=== PATIENT | male | born 1970 | race Caucasian/White ===

== ENCOUNTER 2018-09-04 15:05 | Emergency (ER) | payer OTHER ==
[~2018-09-04] VITALS: Ht 182.9 cm; Wt 92.1 kg
[2018-09-04] MEDS ORDERED: HYDROCHLOROTHIA25 M2 PO (15:13)
[2018-09-04 15:46] LABS: ABSOLUTE EOSINOPHILS 0.2 thou/uL (0.0-0.7); ABSOLUTE LYMPHOCYTES 2.2 thou/uL (0.8-5.3); ABSOLUTE MONOCYTES 0.7 thou/uL (0.0-1.2); ABSOLUTE NEUTROPHILS 4.8 thou/uL (1.6-8.1); BASOPHILS 0.6 %; EOSINOPHILS 2.8 %; HEMATOCRIT 43.2 % (42.0-52.0); HEMOGLOBIN 15.4 gm/dL (14.0-18.0); LYMPHOCYTES 27.4 %; MCH 29.4 pg (26.0-34.0); MCHC 35.6 g/dL (28.0-37.0); MCV 82.7 fL (80.0-100.0); MPV 6.9 fl. (7.2-11.1); NUCLEATED RBCS 0 /100WBC; PLATELET COUNT* 291 thou/uL (150-400); POLYS 60.2 %; RBC 5.23 mil/uL (4.50-6.00); RDW-CV 13.1 % (10.5-14.5)
[2018-09-04 16:06] LABS: CALCIUM 9.3 mg/dL (8.5-10.1); CREATININE 1.1 mg/dL (0.6-1.3); POTASSIUM 3.8 mmol/L (3.5-5.1)
[2018-09-04 16:10] LABS: ALBUMIN 4.4 g/dL (3.4-5.0); TOTAL BILIRUBIN 0.7 mg/dL (<0.1-1.0); TOTAL PROTEIN 7.6 g/dL (6.4-8.2)
[2018-09-04] MEDS ORDERED: MAGIC MOUTHWASH SWISH&SPIT (16:32)
[2018-09-04 16:59] VITALS: BP 132/88
== END 2018-09-04 17:00 | disposition home or self-care (01) ==
LOC: M.ERS 15:05
PROVIDERS: Nurse Practitioner Family
DX: K12.30 Oral mucositis (ulcerative), unspecified (principal); B37.0 Candidal stomatitis; F45.8 Other somatoform disorders; I10 Essential (primary) hypertension; F17.210 Nicotine dependence, cigarettes, uncomplicated; Z88.0 Allergy status to penicillin; Z90.49 Acquired absence of other specified parts of digestive tract